=== PATIENT | male | born 1940 ===

== ENCOUNTER 2023-07-25 11:15 | Outpatient (RCR) | payer MEDICARE, SELFPAY | END 2023-11-22 23:59 | disposition home or self-care (01) | PROVIDERS: Visit Provider Psychiatry & Neurology Neurology | DX: G20.C Parkinsonism, unspecified (principal); R26.9 Unspecified abnormalities of gait and mobility; R26.81 Unsteadiness on feet; M54.2 Cervicalgia; R53.1 Weakness; Z51.89 Encounter for other specified aftercare | CPT/HCPCS: 97110; 97112; 97116; 97140; 97162; 97535 ==